=== PATIENT | female | born 1955 | race Caucasian/White ===

== ENCOUNTER 2016-10-21 10:08 | Emergency (ER) | payer OTHER ==
[~2016-10-21] VITALS: Ht 160 cm; Wt 99.0 kg
[~2016-10-21 10:08] MED LIST: AMLO5TAB4 PO; ASPI81TA3 PO; BENA40TA41 PO; HYD25 PO; METF500T4 PO; METO-429 PO
[2016-10-21 10:16] VITALS: Ht 160 cm; Wt 99.0 kg
[2016-10-21 13:08] VITALS: TEMP 97.7
--- NOTE | 2016-10-21 13:12 | ERA ---
ER Documentation Chief Complaint Date/Time DATE: 10/21/16 TIME: 13:12 Chief Complaint HIGH BLOOD PRESSURE HPI The patient is a 61-year-old female, presenting to the ER because of elevated blood pressure this morning around 8:30 AM when she woke up, associated with dizziness and nausea. She feels better now, denies headache, neck pain, chest pain, dyspnea, abdominal pain, vomiting, dysuria, diarrhea. She does not smoke nor drink Past medical history: Hypertension, diabetes mellitus, dyslipidemia Past surgical history: Cholecystectomy, appendectomy, bilateral breast lumpectomy ROS All systems reviewed and are negative except as per history of present illness. Medications Home Meds Active Scripts Amlodipine Besylate* (Norvasc*) 5 Mg Tablet, 5 MG PO DAILY for 30 Days, TAB Prov:COLT URENA . 06/23/14 Metoprolol Tartrate* (Lopressor*) 50 Mg Tab, 50 MG PO BID for 30 Days, TAB Prov:COLT URENA . 06/23/14 Reported Medications Metformin* (Glucophage*) 500 Mg Tab, 500 MG PO BID, TAB 06/22/14 Hydrochlorothiazide* (Hydrochlorothiazide*) 25 Mg Tab, 25 MG PO DAILY, TAB 06/22/14 Benazepril Hcl* (Benazepril Hcl*) 40 Mg Tablet, 40 MG PO DAILY, TAB 06/22/14 Discontinued Scripts Aspirin (Aspirin) 81 Mg Chew, 81 MG PO DAILY for 30 Days Prov:COLT URENA . 06/23/14 Allergies Allergies: Coded Allergies: Penicillins (Verified Allergy, Unknown, 10/21/16) PMhx/Soc History of Surgery: Yes (CHOLECYSTECTOMY,appy,bilat breast lumpectomy ) Anesthesia Reaction: No Hx Neurological Disorder: No Hx Respiratory Disorders: No Hx Cardiac Disorders: Yes (HTN) Hx Psychiatric Problems: No Hx Miscellaneous Medical Probl: Yes (DM,HTN) Hx Alcohol Use: No Hx Substance Use: No Hx Tobacco Use: No Physical Exam Vitals Vital Signs Date Time Temp Pulse Resp B/P Pulse Ox O2 Delivery O2 Flow Rate FiO2 10/21/16 16:28 67 17 123/70 97 Room Air 10/21/16 13:08 97.7 58 15 153/88 97 Room Air 10/21/16 10:16 98.0 66 19 167/71 98 Physical Exam Const: No acute distress. Head: Atraumatic. Eyes: Normal Conjunctiva. ENT: Normal External Ears, Nose and Mouth. Neck: Full range of motion. No meningismus. Resp: Clear to auscultation bilaterally. Cardio: Regular rate and rhythm, no murmurs. Abd: Soft, non distended, normal bowel sounds, non tender. Skin: No petechiae or rashes. Back: No midline or flank tenderness. Ext: No cyanosis, or edema. Neur: Awake and alert. No focal deficit Psych: Normal Mood and Affect. Result Diagram: 10/21/16 1435 10/21/16 1435 Results 24 hrs Laboratory Tests Test 10/21/16 13:40 10/21/16 14:35 Bedside Glucose 104mg/dL Anion Gap 16 Basophils # 0.010^3/ul Basophils % 0.5% Blood Urea Nitrogen 8mg/dl Calcium Level 8.9mg/dl Carbon Dioxide Level 33mmol/L Chloride Level 99mmol/L Creatinine 0.51mg/dl Eosinophils # 0.010^3/ul Eosinophils % 0.5% Glucose Level 99mg/dl Hematocrit 38.7% Hemoglobin 12.6g/dl Lymphocytes # 2.610^3/ul Lymphocytes % 45.8% Mean Corpuscular Hemoglobin 29.4pg Mean Corpuscular Hemoglobin Concent 32.6g/dl Mean Corpuscular Volume 90.2fl Mean Platelet Volume 9.7fl Monocytes # 0.310^3/ul Monocytes % 4.8% Neutrophils # 2.710^3/ul Neutrophils % 48.2% Nucleated Red Blood Cells # 0.010^3/ul Nucleated Red Blood Cells % 0.0/100WBC Platelet Count 36885^3/UL Potassium Level 3.5mmol/L Red Blood Count 4.2910^6/ul Red Cell Distribution Width 12.1% Sodium Level 144mmol/L White Blood Count 5.610^3/ul Current Medications Medications (Trade) Dose Ordered Sig/Basia Route PRN Reason Start Time Stop Time Status Last Admin Dose Admin Ondansetron HCl (Zofran Inj) 4 mg ONCE STAT IV 10/21/16 13:18 10/21/16 13:20 DC 10/21/16 14:14 Procedures/MDM MEDICAL MAKING DECISION: The patient is a 61-year-old female, presenting with acute accelerated hypertension that improved by itself in the ER. The differential diagnoses considered include but are not limited to medical noncompliance, subarachnoid hemorrhage, occult trauma, CVA, meningitis, encephalitis, hypertension, tension, migraine, cluster, narcotic withdrawal, cervical spine disease. Departure Diagnosis: Primary Impression: HTN (hypertension) Condition: Good Comments I discussed the findings with the patient. I advised the patient to follow-up with the primary physician in about 1-2 days, sooner if needed and return if any concern. PUJA MAIER MD Oct 21, 2016 13:12
[2016-10-21] MEDS ORDERED: ONDANSETRON 4 MG INJ IV STA (13:18)
[2016-10-21 14:53] LABS: ADD SCAN DIFF NO
[2016-10-21 15:00] LABS: BASOPHILS % 0.5 % (0.0-2.0); EOSINOPHILS % 0.5 % (0.0-7.0); HEMATOCRIT 38.7 % (37.0-47.0); HEMOGLOBIN 12.6 g/dl (12.0-16.0); LYMPHOCYTES # 2.6 10^3/ul (0.8-2.9); LYMPHOCYTES % 45.8 % (15.0-51.0); MEAN CORPUSCULAR HEMOGLOBIN 29.4 pg (29.0-33.0); MEAN CORPUSCULAR HGB CONC 32.6 g/dl (32.0-37.0); MEAN CORPUSCULAR VOLUME 90.2 fl (82.0-101.0); MEAN PLATELET VOLUME 9.7 fl (7.4-10.4); MONOCYTE # 0.3 10^3/ul (0.3-0.9); MONOCYTES % 4.8 % (0.0-11.0); NEUTROPHIL # 2.7 10^3/ul (1.6-7.5); NEUTROPHILS % 48.2 % (39.0-77.0); PLATELET COUNT 274 10^3/UL (140-415); RED BLOOD COUNT 4.29 10^6/ul (4.20-5.40); RED CELL DISTRIBUTION WIDTH 12.1 % (11.5-14.5); WHITE BLOOD COUNT 5.6 10^3/ul (4.8-10.8)
[2016-10-21 15:13] LABS: POTASSIUM 3.5 mmol/L (3.5-5.1)
[2016-10-21 15:16] LABS: CREATININE 0.51 mg/dl (0.44-1.00)
[2016-10-21 15:17] LABS: CALCIUM 8.9 mg/dl (8.4-10.2)
[2016-10-21 16:28] VITALS: BP 123/70; PULSE 67; RESP 17
== END 2016-10-21 16:48 | disposition home or self-care (01) ==
LOC: E/R 10:08
DX: I10 Essential (primary) hypertension (principal); E11.9 Type 2 diabetes mellitus without complications; R11.0 Nausea; Z79.82 Long term (current) use of aspirin; Z79.84 Long term (current) use of oral hypoglycemic drugs
CPT/HCPCS: 80048; 82962; 85025; 93005; 96374; J2405; Z7502; Z7610